=== PATIENT | female | born 1955 | race Caucasian/White ===

== ENCOUNTER 2017-03-14 06:25 | Day surgery (SDC) | payer OTHER ==
[~2017-03-14 06:25] MED LIST: CEFAZOLIN 1 GM/D5W RTU 1 GM/50 ML RTUPB IV PRN; RINGERS SOLUTION,LACTATED 1,000 ML IV PRN
[2017-03-14] MEDS ORDERED: MIDAZOLAM 2 MG/2 ML INJ ONE (07:07)
[2017-03-14] MEDS ORDERED: PROPOFOL INJ 200 MG/20 ML VIAL IV ONE (07:08)
[2017-03-14] MEDS ORDERED: ONDANSETRON HCL INJ/PF 4 MG/2 ML SDV ONE (07:08)
[2017-03-14] MEDS ORDERED: FENTANYL CITRATE INJ/PF 100 MCG/2 ML AMPUL ONE (07:08)
[2017-03-14] MEDS ORDERED: LIDOCAINE 2% INJ-PF (20 MG/ML) 10 ML AMPUL ONE (07:08)
[2017-03-14] MEDS ORDERED: LIDOCAINE 2% INJ (20 MG/ML) 20 ML MDV ONE (08:43)
[2017-03-14] MEDS ORDERED: BUPIVACAINE HCL 0.5 % INJ/PF 30 ML SDV ONE (08:43)
--- NOTE | 2017-03-14 10:34 | [facility] OPERATIVE REPORT E ---
[facility] Operative Report NAME: BRENDA HENDERSON AGE: 62Y DATE OF SURGERY: 03/14/2017 ROOM: PREOPERATIVE DIAGNOSES: 1. 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 2. Hammering and varus rotation of the second toe left foot. Both procedures performed on left foot. SURGEON: MASHA YANES D.P.M. FINDINGS: 1. Intraoperative findings indicated very long second metatarsal, which has become plantarflex and has created tremendous pressure pain on the plantar aspect of the second metatarsophalangeal joint with inflammation of the capsule as well. 2. The second toe has become functionally longer due to the longer second metatarsal and has acquired a flexible hammering deformity with also valgus rotation of the proximal interphalangeal joint left foot. Intraoperative findings were confirmed clinically and radiographically. PROCEDURES PERFORMED: 1. Nanda's shortening osteotomy second metatarsal left foot. 2. Phalangectomy second toe left foot. PROCEDURE: With the patient laying in the dorsal recumbent position, left foot and leg were prepped and draped in the usual standard sterile orthopedic manner after the local anesthesia was administered, which was a total ankle block. After the anesthetic effect was accomplished, the left leg was elevated for approximately 2 minutes of time and the left ankle pneumatic tourniquet was inflated up to 250 mmHg after the blood was exsanguinated from the left foot. The left leg was brought to the level of the table. Attention was directed right over the second metatarsophalangeal joint. A curvilinear incision was placed right over the joint. The initial incision was deep and the superficial and deep subcutaneous tissues were dissected via blunt and sharp dissection. This dissection was carried until the capsule structures were all brought into the surgical field. By this time, all bleeders were ligated. All vital structures were identified and protected from surgical trauma. Next, the vertical capsulotomy was performed. Capsule and periosteal structures were dissected off bone and the head of the second metatarsal was brought into the surgical field. At this point, the shortening osteotomy was performed. This osteotomy is executed from anterior to posterior direction and the osteotomy was placed at the dorsal one third of the head of the metatarsal. The osteotomy was parallel to the long axis of the second metatarsal. After the osteotomy was completed, the plantar two thirds of the head of the second metatarsal shifted proximally and with the attention to achieve about 3-4 mm shortening of the second metatarsal. With the surgical fragment in place, the osteotomy was stabilized with a K-wire from dorsal plantar direction. After that, we used the snap screw technique to fixate the osteotomy with 2-point fixation. After the fixation was accomplished, osteotomy was evaluated, correction was extremely satisfactory, and at this point, intraoperative x-rays were taken, which indicated very good alignment of the osteotomy with stable fixation and also the second metatarsal was shortened and aligned with the third metatarsal. At this point, attention was directed to the second toe. The flexible hammering deformity had self corrected, but the second toe continued to be in a valgus rotation. At this point, the phalangectomy was performed at the proximal interphalangeal joint. The initial incision was extended over the second toe. The subcutaneous tissues were dissected via blunt and sharp dissection. Precautions were taken not to damage the neurovascular bundle on the medial and lateral aspect of the second toe. At this point, a transverse capsulotomy was performed right through the tendon and the capsule. Capsular and periosteal structures were dissected off bone and the head of the proximal phalanx was brought into the surgical field. At this point, the very distal portion was removed and enough bone was removed to allow the second toe to acquire a perfect rectus position. After the correction of the digital deformity, the left ankle pneumatic tourniquet was deflated. Circulation returned to normal immediately as the normal digital color and temperature became apparent. Next, the surgical sites were irrigated with copious amounts of sterile saline solution. The capsule structures at the second metatarsophalangeal joint and the proximal interphalangeal joint were closed with 3-0 Vicryl. The subcutaneous tissues from deep to superficial were closed with 3-0 Vicryl. The skin edges were repositioned and coapted with 4-0 nylon using continuous Interlock stitch. A Betadine compression dressing was applied around the left foot followed with an ABDIFATAH bandage and a surgical shoe. This patient tolerated the procedures well and left the operating room with stable vital signs and in good condition. The patient was taken to the recovery room alert, conscious, and oriented. There are no permanent disabilities anticipated at this time. The immediate postoperative recovery was also very uneventful. The patient was sent home with instructions for postoperative care at home, pain medicine, and antibiotics were prescribed to the patient and instructions were given how the medicine to be administered. The patient took a regular diet and to take all the medications that she takes on a daily basis. The patient was also given home instructions for postoperative care at home and patient was instructed to elevate and bend the surgical leg and foot in order to prevent formation of blood clots. Followup appointment was set in my office in 72 hours and patient remained nonweightbearing on the left foot at all times. DICTATING PHYSICIAN: MASHA YANES D.P.M. [id number] PHY#: [id number] ID: [id number] JOB#: [id number] ACCT: [id number] cc:MASHA YANES D.P.M. > MTDD
--- NOTE | 2017-03-14 13:19 | RADIOLOGY REPORT (SQ) ---
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 FLUOROSCOPY TIME: 9 seconds. 2 images saved to PACS. TECHNIQUE: Intra-operative images acquired during surgical procedure to evaluate progress. NUMBER OF IMAGES: 2 images. LIMITATIONS: None. FINDINGS: Images acquired during procedure. Hardware in the head of the 2nd metatarsal. IMPRESSION: IMAGE(S) OBTAINED DURING PROCEDURE. COMMENT: Quality ID [id number]: Final reports for procedures using fluoroscopy that document radiation exp osure indices, or exposure time and number of fluorographic images (if radiation exposure indices are not available) Please consult full operative report of the attending physician for description of the procedure. TECHNICAL DOCUMENTATION: JOB ID: [id number] [employer]- All Rights Reserved
== END 2017-03-14 10:30 | disposition home or self-care (01) ==
LOC: SC 06:25
PROVIDERS: ATTEND Podiatrist Foot & Ankle Surgery
PROC: 0QBR0ZZ Excision of Left Toe Phalanx, Open Approach (ICD-10-PCS; 2017-03-14)
PROC: 0QSP04Z Reposition Left Metatarsal with Internal Fixation Device, Open Approach (ICD-10-PCS; principal; 2017-03-14 07:30)
DX: M20.5X2 Other deformities of toe(s) (acquired), left foot (principal); M21.072 Valgus deformity, not elsewhere classified, left ankle; R01.1 Cardiac murmur, unspecified; I49.9 Cardiac arrhythmia, unspecified
CPT/HCPCS: 28308; 73620; 28124; C1713 ×3; J2250; J3490 ×3; J0690; J3010; J2405; J2704; 01480

== ENCOUNTER 2018-06-29 09:51 | Emergency (ER) | payer BC, OTHER ==
--- NOTE | 2018-06-29 11:34 | RADIOLOGY REPORT (SQ) ---
EXAM DESCRIPTION: WRIST RIGHT 3 VIEWS COMPLETED DATE/TIME: 06/29/2018 11:25 am REASON FOR STUDY: fall; wrist pain COMPARISON: None. NUMBER OF VIEWS: Three views. TECHNIQUE: AP, lateral, and oblique radiographic images acquired of the right wrist. LIMITATIONS: None. FINDINGS: MINERALIZATION: Mildly decreased BONES: No acute fracture or dislocation. No worrisome bone lesions. Normal alignment. Mild degener ative changes at the 1st carpometacarpal joint. SOFT TISSUES: No soft tissue swelling. No foreign body. OTHER: No other significant finding. IMPRESSION: No evidence of acute bony abnormality. TECHNICAL DOCUMENTATION: JOB ID: [id number] [employer]- All Rights Reserved Reading location - IP/workstation name: [email or web address]
--- NOTE | 2018-06-29 11:38 | ER Document Report ---
HPI - HPI Time Seen by Provider: 06/29/18 10:38 Pain Level: 3 Context: Patient is a 63-year-old right-handed female who presents emergency department with a chief complaint of right wrist pain. She was climbing on a barstool to fix her fan, but fell off and landed on her wrist. She denies hitting her head. She is currently on Percocet for back pain. Her last dose was at 6:00 this morning. She also took some ibuprofen this morning around 9:00 in the morning. She states that her pain is in the middle of her wrist. It does hurt to squeeze. Denies any finger pain. Denies any past mother call history other than her chronic back pain. She only takes Percocet. - CONSTITUTIONAL Constitutional: DENIES: Fever, Chills - NEURO Neurology: DENIES: Headache, Dizzinesss / Vertigo - CARDIOVASCULAR Cardiovascular: DENIES: Chest pain - RESPIRATORY Respiratory: DENIES: Trouble Breathing, Coughing - MUSCULOSKELETAL Musculoskeletal: REPORTS: Extremity pain - R wrist. DENIES: Swelling - DERM Skin Color: Normal Skin Problems: None Past Medical History - Social History Smoking Status: Never Smoker Chew tobacco use (# tins/day): No Frequency of alcohol use: None Drug Abuse: None Family History: Reviewed & Not Pertinent Patient has suicidal ideation: No Patient has homicidal ideation: No - Past Medical History Cardiac Medical History: Denies: Hx Heart Attack, Hx Hypertension Pulmonary Medical History: Denies: Hx Asthma Neurological Medical History: Denies: Hx Cerebrovascular Accident, Hx Seizures Renal/ Medical History: Denies: Hx Peritoneal Dialysis GI Medical History: Denies: Hx Hepatitis, Hx Hiatal Hernia, Hx Ulcer Infectious Medical History: Denies: Hx Hepatitis Past Surgical History: Denies: Hx Mastectomy, Hx Open Heart Surgery, Hx Pacemaker Vertical Provider Document - CONSTITUTIONAL Agree With Documented VS: Yes Exam Limitations: No Limitations General Appearance: No Apparent Distress - INFECTION CONTROL TRAVEL OUTSIDE OF THE [place] IN LAST 30 DAYS: No - HEENT HEENT: Atraumatic, Normocephalic, PERRLA - NECK Neck: Normal Inspection, Supple - RESPIRATORY Respiratory: Breath Sounds Normal, No Respiratory Distress - CARDIOVASCULAR Cardiovascular: Regular Rate, Regular Rhythm, No Murmur Pulses: Normal: Radial - MUSCULOSKELETAL/EXTREMETIES Musculoskeletal/Extremeties: Tender - Right mid wrist, No Edema, Eccymosis - NEURO Level of Consciousness: Awake, Alert, Appropriate Motor/Sensory: No Motor Deficit, No Sensory Deficit - DERM Integumentary: Warm, Dry, No Rash Course - Re-evaluation Re-evalutation: 06/29/18 11:53 There is no fracture at this time on the patient's x-ray. Patient has good flexion and extension of all digits. No tenderness noted at the anatomical snuffbox area. I do not suspect a scaphoid fracture, tendon rupture, or any other life-threatening etiology at this time. The patient will be placed in an Iván wrap and she will follow-up with her primary care provider in regards to this visit. She will continue her Percocet and ibuprofen as needed for her pain. She is in agreement with this plan. Verbal discharge instructions were given to the patient. They verbalized understanding. They are stable for discharge. - Vital Signs Vital signs: Temp Pulse Resp BP Pulse Ox 98.2 F 79 16 180/79 H 98 06/29/18 10:04 06/29/18 10:04 06/29/18 10:04 06/29/18 10:04 06/29/18 10:04 Procedures - Immobilization Right Wrist Pre-Proc Neuro Vasc Exam: Normal Immobilizer type: Iván wrap Performed by: PCT Post-Proc Neuro Vasc Exam: Normal, Unchanged from pre-exam Alignment checked and good: Yes Discharge - Discharge Clinical Impression: Right wrist sprain Qualifiers: Encounter type: initial encounter Qualified Code(s): S63.501A - Unspecified sprain of right wrist, initial encounter Condition: Stable Disposition: HOME, SELF-CARE Additional Instructions: You were seen today in the emergency department for right wrist pain. There is no fracture at this time. Please continue to take your Percocet and ibuprofen as needed for your pain. You have been provided an Iván wrap. Wear the Iván wrap to help with any swelling and inflammation. Follow-up with your primary care provider in 1 to 2 weeks if the pain continues. Please rest your hand, apply ice as needed elevate your wrist, and wear your Iván wrap. If you have worsening symptoms, please return to the emergency department.
[2018-06-29 12:03] VITALS: BP 181/96
== END 2018-06-29 12:08 | disposition home or self-care (01) ==
LOC: ER 09:51
DX: S63.501A Unspecified sprain of right wrist, initial encounter (principal); M25.531 Pain in right wrist; W08.XXXA Fall from other furniture, initial encounter; Y93.39 Activity, other involving climbing, rappelling and jumping off; Y92.009 Unspecified place in unspecified non-institutional (private) residence as the place of occurrence of the external cause; M54.9 Dorsalgia, unspecified; G89.29 Other chronic pain; Z79.891 Long term (current) use of opiate analgesic
CPT/HCPCS: 99283